=== PATIENT | female | born 1945 | race Caucasian/White ===

== ENCOUNTER 2016-03-09 05:44 | Day surgery (SDC) | payer OTHER ==
[~2016-03-09] VITALS: Ht 154.9 cm; Wt 87.5 kg
[2016-03-09] VITALS (18 sets, daily range): BP systolic 98–188; BP diastolic 56–88; PULSE 76–90; RESP 7–23; Ht 154.9 cm; Wt 87.5 kg
[~2016-03-09 05:44] MED LIST: ASPI81TA3 PO; GLIP10TA95 PO; LANTUS SC; LOSA100T47 PO; METF500T4 PO; METO-448 PO; PRAV40TA76 PO
[2016-03-09] MEDS ORDERED: CEFAZOLIN 2 GM/50 ML (PMX) 50 ML IVPB ONE (07:00)
[2016-03-09] MEDS ORDERED: GLUCOSE GEL 15 GRAM TUBE PO PRN ×2 (07:30)
[2016-03-09] MEDS ORDERED: GLUCAGON 1 MG INJ IM PRN (07:30)
[2016-03-09] MEDS ORDERED: INSULIN REGULAR, HUMAN 100 UNIT/1 ML 3ML VIAL SC ONE (07:30)
[2016-03-09] MEDS ORDERED: GLUCOSE GEL 15 GRAM TUBE BUCCAL PRN (07:30)
[2016-03-09] MEDS ORDERED: DEXTROSE 50% 50 ML SYRINGE IV PRN ×2 (07:30)
[2016-03-09] MEDS ORDERED: AMLO5TAB4 PO (07:31)
[2016-03-09] MEDS ORDERED: TRAM50TA2 PO (07:31)
[2016-03-09] MEDS ORDERED: NOVO3I SC (07:31)
[2016-03-09] MEDS ORDERED: SPIR100T31 PO (07:35)
[2016-03-09] MEDS ORDERED: GUAI120S26 PO (07:35)
[2016-03-09] MEDS ORDERED: CHOL100062 PO (07:35)
[2016-03-09] MEDS ORDERED: SPIR50TA PO (07:35)
[2016-03-09] MEDS ORDERED: FURO40TA4 PO (07:35)
[2016-03-09] MEDS ORDERED: ROCURONIUM 50 MG INJ ONE (07:59)
[2016-03-09] MEDS ORDERED: FENTAnyl 50 MCG/ML VIAL ONE ×2 (07:59→08:36)
[2016-03-09] MEDS ORDERED: SUCCINYLCHOLINE CHLORIDE 100 MG/5 ML SYG IV ONE (07:59)
[2016-03-09] MEDS ORDERED: ONDANSETRON 4 MG INJ ONE (07:59)
[2016-03-09] MEDS ORDERED: LIDOCAINE 1% (MDV) 20 ML INJ ONE (07:59)
[2016-03-09] MEDS ORDERED: ACETAMINOPHEN 1000MG/100ML IV 100 ML ONE (07:59)
[2016-03-09] MEDS ORDERED: PROPOFOL 20 ML ONE (07:59)
[2016-03-09] MEDS ORDERED: LIDOCAINE 1% (MPF) 30 ML INJ INJ ONE (08:00)
--- NOTE | 2016-03-09 08:03 | HPN ---
Date/Time of Note Date/Time of Note DATE: 03/09/16 TIME: 08:03 Interval H&P Admission Note Pt. seen H&P reviewed: No system changes RICARDO HUANG MD Mar 09, 2016 08:03
[2016-03-09] MEDS ORDERED: LIDOCAINE 1% (MPF) 30 ML INJ ONE (08:09)
[2016-03-09] MEDS ORDERED: HEPARIN 1000 UNITS/ML 10 ML INJ ONE (08:31)
[2016-03-09] MEDS ORDERED: METOCLOPRAMIDE 10 MG INJ ONE (08:32)
[2016-03-09] MEDS ORDERED: EPHEDrine SULFATE 50 MG/5 ML SYG ONE (08:37)
[2016-03-09] MEDS ORDERED: MEPERIDINE 25 MG INJ IV PRN (09:00)
[2016-03-09] MEDS ORDERED: LABETALOL HCL 20MG INJ IV PRN (09:00)
[2016-03-09] MEDS ORDERED: ONDANSETRON 4 MG INJ IV PRN (09:00)
[2016-03-09] MEDS ORDERED: morphine (1 MG/ML) 10ML SYRINGE IV PRN ×2 (09:00)
[2016-03-09] MEDS ORDERED: INSULIN ASPART [NOVOLOG] 3 ML PEN SC ONE (09:00)
[2016-03-09] MEDS ORDERED: EPHEDrine SULFATE 50 MG/5 ML SYG IV PRN (09:00)
[2016-03-09] MEDS ORDERED: hydrALAzine 20 MG INJ IV PRN (09:00)
[2016-03-09] MEDS ORDERED: FENTAnyl 50 MCG/ML VIAL IV PRN (09:00)
--- NOTE | 2016-03-09 11:02 | PDOCDIS ---
Discharge Instructions DIAGNOSIS Discharge Diagnosis: LLE VENOUS INSUFFICIENCY CONDITION Patient Condition: Good HOME CARE INSTRUCTIONS: Diet Instructions: Regular ACTIVITY: Activity Restrictions: Slowly Increase Activity Rest between Activity Avoid heavy lifting Do not Drive Do not operate Machinery Do not operate Power Tool Avoid Heavy Housework Keep Limb Elevated Activity Restrictions Comment: MAY SHOWER IN TWO DAYS FOLLOW UP/APPOINTMENTS Appointments NO BATHING OR SWIMMING FOLLOWUP WITH SAL AT [facility] IN 2 WEEKS MAY REMOVE DRESSING IN TWO DAYS ALLOW STERI STRIPS TO COME OFF ON THEIR OWN RICARDO HUANG MD Mar 09, 2016 11:02
--- NOTE | 2016-03-09 11:04 | OPR ---
Date/Time of Note Date/Time of Note DATE: 03/09/16 TIME: 11:03 Operative Report Free Text/Dictation DATE OF OPERATION: 03/09/2016 SURGEON: Yon Huang MD PREOPERATIVE DIAGNOSIS: Left lower extremity venous stasis ulcer and insufficiency with Left leg large varicose veins POSTOPERATIVE DIAGNOSIS: same PROCEDURE: 1. Left greater saphenous vein ligation and stripping 2. Stab phlebectomies x10 ANESTHESIA: MAC & local COMPLICATIONS: None. ESTIMATED BLOOD LOSS: Minimal. TRANSFUSIONS: None SPECIMEN: None. INDICATIONS: This is a 70-year-old female with a history of chronic venous insufficiency and with left leg varicose veins associated with pruritus, discomfort and pain The risks and benefits of the procedure were discussed with the patient and not limited to , MD, pneumonia, stroke, infection, thrombosis of vein and she elected to undergo surgical intervention. DESCRIPTION: The patient was placed in supine position on the operating room table. The arms were placed at 80 degrees. The normal bony prominences were padded. The anesthesia team had placed the appropriate lines and anesthesia was induced. Time-out performed and the appropriate site was marked and confirmed. The patient's left lower extremity was already marked in the holding area with the areas of varicosities. The extremity was prepped and draped in the usual standard sterile fashion. Preoperative antibiotics were administered prior to the skin incision. All varicosities were pre-marked in the surgery holding area. Primary incision was then made in the right inguinal crease overlying the saphenofemoral junction. This was identified as being 1 cm medial and 1 cm inferior to the femoral artery pulse. The subcutaneous tissue was divided with electrocautery. The greater saphenous vein was identified and traced proximally towards the saphenofemoral junction. Multiple venous tributaries were divided with a 3-0 silk ligatures. The greater saphenous vein was doubly ligated at its origin with a 2-0 silk ligature. The distal ligature was not tied however it was left in. A second incision was made a few centimeters below the knee. The subcutaneous tissue was divided and the saphenous vein was identified, then encircled proximally and distally with 3-0 silk ties. This time the distal ligature was secured and the proximal LigaSure left in position. Care was taken to avoid injury to the saphenous nerve. A small transverse venotomy was created with a # 11 blade. The stripping wire was inserted and passed proximally towards the groin without difficulty. The greater saphenous vein was then divided completely at the groin, allowing the vein stripping wire to exit. Prior to removal of the stripping wire was secured at both ends with a 2-0 silk ties that has been left in position. The greater saphenous vein was then stripped from distal to proximal with pressure being exerted as the vein was stripped. At this point hemostasis was controlled by elevation and pressure. Small incisions approximately 2-4 mm, were created over the preoperative marked areas using a #11 blade. A small stephanie hook and mosquito hemostat was used to avulse these veins. Veins were then pulled both proximally and distally. After hemostasis was obtained the wounds are irrigated copiously. The wound and the groin was closed in multiple layers with a 3-0 Vicryl Sutures Followed by Running 3-0 Subcuticular Stitch. Wounds Were the Stab Avulsions Occurred Were Closed with Steri-Strips. The Wound at the Below-Knee Incision Was Closed with a 3-0 Vicryl Suture. Steri-Strips Were Applied. All Wounds Were Sterilely Dressed with Gauze. Multiple 1cm stab incisions were made using #15 blade after injecting 1% lidocaine for local anesthesia. Short Bri clamp was used to dissect out the varicosities and stripping was performed in more than ten different areas that were marked preoperatively. Incisions were closed using 3-0 Vicryl sutures. Mastisol and steri strips were applied.Then Doubly Applied 6 Inch Jose C Bandage Was Placed on the Lower Leg Beginning at the Toes All the Way up to the Upper Thigh. The Patient Tolerated the Procedure Well and Was taken to the Postanesthesia Care Unit in Stable Condition. All instruments, catheters, sponges, and needles were corrected x2. YON HUANG MD Mar 09, 2016 11:04
--- NOTE | 2016-03-09 16:22 | RADRPT ---
Vent Rate: 76 bpm RR Interval: 0 msec [place] Interval: 138 msec QRS Duration: 84 msec QT Interval: 390 msec QTC Interval: 438 msec P-R-T [place]: 42 - 48 - 68 degrees Normal sinus rhythm Nonspecific T wave abnormality Abnormal ECG Electronically Signed By: Danny Willis [id number]
== END 2016-03-09 13:05 | disposition home or self-care (01) ==
LOC: SDS 05:44
PROVIDERS: ATTEND Student in an Organized Health Care Education/Training Program
DX: I83.92 Asymptomatic varicose veins of left lower extremity (principal); E11.9 Type 2 diabetes mellitus without complications; I12.9 Hypertensive chronic kidney disease with stage 1 through stage 4 chronic kidney disease, or unspecified chronic kidney disease; N18.9 Chronic kidney disease, unspecified; E66.9 Obesity, unspecified; Z68.36 Body mass index [BMI] 36.0-36.9, adult
CPT/HCPCS: 37765; 82962; 88304; 93005; J1644; J1815; J2405; J2765; J3010; J0131; J0330

== ENCOUNTER 2016-11-27 06:57 | Day surgery (SDC) | payer OTHER ==
[2016-11-27] VITALS (9 sets, daily range): BP systolic 115–148; BP diastolic 54–71; PULSE 67–72; RESP 18–21; Ht 317.5 cm; Wt 91.0 kg
[~2016-11-27] VITALS: Ht 317.5 cm; Wt 91.0 kg
[~2016-11-27 06:57] MED LIST changes: +AMLO5TAB4 PO; +CHOL100062 PO; +FURO40TA4 PO; -GLIP10TA95 PO; +GUAI120S26 PO; -METF500T4 PO; +NOVO3I SC; +SPIR100T31 PO; +SPIR50TA PO; +TRAM50TA2 PO
[2016-11-27] MEDS ORDERED: NOVO3I SC (07:34)
[2016-11-27] MEDS ORDERED: ROSU20TA PO (07:34)
[2016-11-27] MEDS ORDERED: LANT3I SC (07:35)
[2016-11-27] MEDS ORDERED: METF500T4 PO (07:36)
[2016-11-27] MEDS ORDERED: METO25TA4 PO (07:37)
--- NOTE | 2016-11-27 07:43 | RADRPT ---
PROCEDURE: XR Chest. CLINICAL INDICATION: Shortness of breath TECHNIQUE: Single frontal view of the chest was obtained COMPARISON: None FINDINGS: Atherosclerotic changes are seen in the aortic arch. The heart is mildly enlarged. The lungs are clear. There is no pleural effusion or pneumothorax. The bones and soft tissue show no acute change. IMPRESSION: The heart is mildly enlarged. Otherwise, no significant abnormalities are identified. RPTAT:AAJJ Physician Yesica Date Time Electronically viewed and signed by Mohamud Mclaughlin Physician on 11/27/2016 07:42 MACARIO/
[2016-11-27 07:48] LABS: BASOPHIL # 0.1 10^3/ul (0.0-0.1); BASOPHILS % 0.8 % (0.0-2.0); EOSINOPHILS # 0.4 10^3/ul (0.0-0.5); EOSINOPHILS % 5.2 % (0.0-7.0); HEMATOCRIT 42.9 % (37.0-47.0); LYMPHOCYTES # 2.9 10^3/ul (0.8-2.9); LYMPHOCYTES % 38.1 % (15.0-51.0); MEAN CORPUSCULAR HGB CONC 32.6 g/dl (32.0-37.0); MEAN CORPUSCULAR VOLUME 94.9 fl (82.0-101.0); MEAN PLATELET VOLUME 11.8 fl (7.4-10.4); MONOCYTE # 0.8 10^3/ul (0.3-0.9); MONOCYTES % 10.2 % (0.0-11.0); NEUTROPHIL # 3.5 10^3/ul (1.6-7.5); NEUTROPHILS % 45.6 % (39.0-77.0); PLATELET COUNT 156 10^3/UL (140-415); RED BLOOD COUNT 4.52 10^6/ul (4.20-5.40); RED CELL DISTRIBUTION WIDTH 12.5 % (11.5-14.5); WHITE BLOOD COUNT 7.7 10^3/ul (4.8-10.8)
[2016-11-27 08:05] LABS: INR 0.87; PROTIME 11.8 Sec (12.2-14.2); PT RATIO 0.9
[2016-11-27 08:06] LABS: PARTIAL THROMBOPLASTIN TIME 26.2 Sec (25.0-35.0)
[2016-11-27 08:10] LABS: CALCIUM 9.4 mg/dl (8.4-10.2); POTASSIUM 4.8 mmol/L (3.5-5.1)
[2016-11-27 08:13] LABS: CREATININE 1.31 mg/dl (0.44-1.00)
[2016-11-27 08:24] LABS: ADD UMIC YES; UR ASCORBIC ACID NEGATIVE (NEGATIVE); UR BILIRUBIN (Dip) NEGATIVE (NEGATIVE); UR BLOOD (Dip) NEGATIVE (NEGATIVE); UR CLARITY CLEAR (CLEAR); UR COLOR COLORLESS (YELLOW); UR GLUCOSE (Dip) NEGATIVE (NEGATIVE); UR KETONES (Dip) NEGATIVE (NEGATIVE); UR LEUKOCYTE ESTERASE (Dip) 1+ Leu/ul (NEGATIVE); UR NITRITE (Dip) NEGATIVE (NEGATIVE); UR RBC 0 /HPF (0-5); UR SPECIFIC GRAVITY (Dip) 1.005 (1.003-1.030); UR TOTAL PROTEIN (Dip) NEGATIVE (NEGATIVE); UR UROBILINOGEN (Dip) NEGATIVE (NEGATIVE)
--- NOTE | 2016-11-27 12:01 | CONS ---
Date/Time of Note Date/Time of Note DATE: 11/27/16 TIME: 11:58 Consultation Date/Type/Reason Admit Date/Time Hx of Present Illness VASCULAR SURGERY H&P Dear Doctors: Ms. Tsai is a 70-year-old female, known to our vascular surgery service, who presented with bilateral lower extremity varicose veins and venous insufficiency. The patient had noticed that this was getting worse over the past 6 to 7 months. Her left had been worse than her right, especially because of her profession with her work and prolonged standing. 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 Further, she underwent a left lower extremity greater saphenous vein ligation and stripping stab phlebectomy for her varicose veins. The patient mentions that she has a lot of left lower extremity discomfort that has lessened and she is trying to be as compliant as possible with her compression stockings. She would like to pursue other evaluations for possible proximal reflux in her venous system. She denies shortness of breath, chest pain, nausea, vomiting, fever or chills. She denies left lower extremity discomfort, pain or tingling. She does mention that her right lower extremity has similar complaints as the left lower extremity for now and new US showed possible left iliac vein reflux PHYSICAL EXAMINATION: GENERAL: Alert and oriented x3. LUNGS: Clear to auscultation bilaterally. HEART: S1, S2 present. ABDOMEN: Soft, nontender, nondistended. Bowel sounds positive. Truncal obesity. EXTREMITIES: Right lower extremity palpable femoral pulse, palpable pedal pulse. Motor and sensory intact. Cap refill is 2 to 3 seconds. A large thigh area. She has varicose veins from her feet all the way up to her lower thigh area, with varicose veins, telangiectasias, and spider veins. Edema 1+. Left lower extremity has a palpable femoral pulse, palpable pedal pulse. Motor and sensory intact. Cap refill 2 to 3 seconds. She has spider veins and telangiectasias from her feet all the way up to her knee. She does have varicose veins from her knee area on the lateral aspect of the leg that run to her upper thigh. ASSESSMENT AND PLAN: 1. Bilateral lower extremity venous insufficiency and varicose veins. The patient's bilateral greater saphenous vein reflux has been associated with her discomfort, itchiness and heaviness of her feet with prolonged standing. The patient has undergone left lower extremity greater saphenous vein stripping, ligation and stab phlebectomy and she has been coming along well. We encouraged her to continue with being compliant in wearing her compression stockings. We will address her remaining varicose veins that have not resolved and plan to perform stab phlebectomies for those veins. and will schedule her for venogram 2. For her right lower extremity venous insufficiency and varicose veins we have encouraged her to continue with better compliance with the compression stockings and will be re-evaluate her at that time if she still is having any discomfort, and if so will schedule her for greater saphenous vein ligation, stab phlebectomy and stripping at that time. 3. The patient has agreed to our plan. We discussed the findings and our management with a certified auto former machine operator and they understand. 4. Optimize vascular status (BP meds, diet, nutrition, exercise, sugar control , antiplatelets, weight loss). 5. The patient has some lower extremity discomfort of her feet, as she has peripheral neuropathy, and she will require diabetic fitted shoes and inserts. Will make the appropriate recommendations to have this ordered for her. Thank you for allowing us to partake in the care of your patient. Please call with any questions. Social History Smoking Status: Never smoker Exam/Review of Systems Vital Signs Vitals Vital Signs Date Time Temp Pulse Resp B/P Pulse Ox O2 Delivery O2 Flow Rate FiO2 11/27/16 07:53 98.4 72 18 148/65 99 Room Air Results Result Diagram: 11/27/1620 11/27/1620 Results 24 hrs Laboratory Tests Test 11/27/16 07:20 11/27/16 07:33 White Blood Count 7.7 Red Blood Count 4.52 Hemoglobin 14.0 Hematocrit 42.9 Mean Corpuscular Volume 94.9 Mean Corpuscular Hemoglobin 31.0 Mean Corpuscular Hemoglobin Concent 32.6 Red Cell Distribution Width 12.5 Platelet Count 156 Mean Platelet Volume 11.8 H Neutrophils % 45.6 Lymphocytes % 38.1 Monocytes % 10.2 Eosinophils % 5.2 Basophils % 0.8 Nucleated Red Blood Cells % 0.0 Neutrophils # 3.5 Lymphocytes # 2.9 Monocytes # 0.8 Eosinophils # 0.4 Basophils # 0.1 Nucleated Red Blood Cells # 0.0 Prothrombin Time 11.8 L Prothrombin Time Ratio 0.9 INR International Normalized Ratio 0.87 Activated Partial Thromboplast Time 26.2 Urine Color COLORLESS Urine Clarity CLEAR Urine pH 6.0 Urine Specific [place] 1.005 Urine Ketones NEGATIVE Urine Nitrite NEGATIVE Urine Bilirubin NEGATIVE Urine Urobilinogen NEGATIVE Urine Leukocyte Esterase 1+ H Urine Microscopic RBC 0 Urine Microscopic WBC 4 Urine Hemoglobin NEGATIVE Urine Glucose NEGATIVE Urine Total Protein NEGATIVE Sodium Level 143 Potassium Level 4.8 Chloride Level 106 Carbon Dioxide Level 30 Anion Gap 12 Blood Urea Nitrogen 44 H Creatinine 1.31 H Glucose Level 124 Calcium Level 9.4 Bedside Glucose 114 RICARDO HUANG MD Nov 27, 2016 12:01
[2016-11-27] MEDS ORDERED: LIDOCAINE 1% (MDV) 20 ML INJ ONE (12:09)
[2016-11-27] MEDS ORDERED: HEPARIN 1000 UNITS/ML 10 ML INJ ONE (12:09)
[2016-11-27] MEDS ORDERED: FENTAnyl 50 MCG/ML VIAL ONE ×2 (12:30→13:33)
[2016-11-27] MEDS ORDERED: MIDAZOLAM 1 MG/ML 2 ML INJ ONE (12:30)
--- NOTE | 2016-11-27 14:07 | HPN ---
Date/Time of Note Date/Time of Note DATE: 11/27/16 TIME: 14:07 Interval H&P Admission Note Pt. seen H&P reviewed: No system changes RICARDO HUANG MD Nov 27, 2016 14:07
--- NOTE | 2016-11-27 14:12 | PDOCDIS ---
Discharge Instructions DIAGNOSIS Discharge Diagnosis BILATERAL LE VENOUS INSUFFICIENCY CONDITION Patient Condition: Good HOME CARE INSTRUCTIONS: Special Diet: RESUME PREOP ACTIVITY: Activity Restrictions: Slowly Increase Activity Avoid heavy lifting Do not Drive Do not operate Power Tool Avoid Heavy Housework Keep Limb Elevated Activity Restrictions Comment: MAY SHOWER IN TWO DAYS FOLLOW UP/APPOINTMENTS Follow-up Plan FOLLOWUP IN TWO WEEKS RICARDO HUANG MD Nov 27, 2016 14:12
[2016-11-27] MEDS ORDERED: SOD CHLORIDE 0.45% 1,000 ML IV SCH (14:17)
[2016-11-27] MEDS ORDERED: ONDANSETRON 4 MG INJ IV PRN (14:30)
--- NOTE | 2016-11-27 14:32 | SIPON ---
Date/Time of Note Date/Time of Note DATE: 11/27/16 TIME: 14:31 Operative Report Preoperative Diagnosis bilateral LE VENOUS INSUFFICIENCY Postoperative Diagnosis SAME Operation/Procedure Performed BILATERAL ILIAC VEIN STENTING AND ANGIOPLASTY AND IVUS Surgeon see signature line health information assistant NONE Anesthesia: moderate sedation Estimated blood loss: minimal Transfusion Required none Specimen STENTS Grafts/Implants none Complications none RICARDO HUANG MD Nov 27, 2016 14:32
[2016-11-27] MEDS ORDERED: APIXABAN 5 MG TABLET PO ONE (15:30)
[2016-11-27] MEDS ORDERED: ACCU-CHEK XX SCH (17:30)
--- NOTE | 2016-11-30 15:57 | RADRPT ---
Vent Rate: 73 bpm RR Interval: 0 msec [place] Interval: 138 msec QRS Duration: 86 msec QT Interval: 390 msec QTC Interval: 429 msec P-R-T [place]: 50 - 45 - 61 degrees Normal sinus rhythm Nonspecific T wave abnormality Abnormal ECG Electronically Signed By: Josr Milton [id number]
--- NOTE | 2016-12-01 05:40 | OPR ---
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 HEPARIN: 5000UNITS CONTRAST: 43ml ACCESS: 11Fr Sheath left popliteal vein CLOSURE: Manual compression INDICATIONS: This is a 31-year-old female with history of left lower extremity DVT that presented with recurrent acute left lower extremity DVT and GSV thrombophlebitis, associated with pain, swelling and discomfort . Patient has been informed of the alternatives, risks, and benefits of venogram, balloon venoplasty, and stenting. Risks including but not limited to bleeding, thrombosis, embolization, myocardial infarction, , device malfunction, infection, and nephrotoxicity and patient has agreed to proceed. This is the first diagnostic venogram in this clinical setting PROCEDURE: 1. Ultrasound guided access of left popliteal vein 2. Left lower extremity venogram 3. Inferior vena cava venogram 4. Intravascular ultrasound of the left popliteal vein, deep femoral vein, common femoral vein, external iliac vein , common iliac vein, inferior vena cava 5. Left Common iliac vein & external iliac vein stenting with [id number] wall stent 6. Left Common iliac vein & external iliac vein venoplasty with [id number] 7. Completion intravascular ultrasound 8. Completion venogram of the left lower extremity FINDINGS: Left popliteal vein thrombus Left femoral vein patent Left common femoral vein patent Left proximal external iliac vein compression Left proximal common iliac vein compression Inferior vena cava patent Left proximal common iliac vein measuring 96.8 mm Left distal common iliac vein injuring to 220.2 mm There is 72.4% difference Left proximal external iliac vein measuring 122.5 mm Left distal external iliac vein measuring 86.6 mm Postintervention: Left common iliac vein measuring 183.8 mm Left external iliac vein measuring 155.2 mm DESCRIPTION OF THE PROCEDURE: The patient was brought to the angio suite and positioned in the prone position on the fluoroscopic table. Sedation was administered without complication. Bilateral popliteal region were shaved, prepped and draped in the standard sterile fashion. A time-out and the appropriate site was marked and confirmed. Local anesthesia was infiltrated in the region of the common popliteal vein. The popliteal vein was cannulated with a micro access needle under ultrasound guidance and a guide wire advanced into the femoral vein under fluoroscopic guidance. The needle was removed and a microcatheter was placed. Rosenberg wire was then passed into the iliac vein under fluoroscopic guidance followed by a short 8Fr sheath over the wire. Sheath was appropriately flushed with heparinized saline solution. Left lower extremity and inferior vena cava venogram was conducted. Intravascular ultrasound was conducted and findings were noted. It was identified that the patient has venous webbing throughout the femoral vein, wall thickening upon the intravascular ultrasound, and common, external iliac vein compression. Subsequently, 11 Egyptian sheath was placed and a wall stents 22mm x 70mm was deployed in the left common iliac vein extending to the external iliac vein. Completion venogram and intravascular ultrasound was conducted and findings were as noted. There was good outflow across the iliac system without any areas of compression. At this point the sheath was removed and pressure was held and the patient was taken to the recovery unit in fair condition. PLAN: We will plan to have the patient continue anticoagulation for 3-6 months. The patient will return for repeat of venous duplex in 1 month. YON HUANG MD Dec 01, 2016 05:40
== END 2016-11-27 18:45 | disposition home or self-care (01) ==
LOC: SDS 06:57
PROVIDERS: ATTEND Student in an Organized Health Care Education/Training Program
DX: I87.1 Compression of vein (principal); I82.432 Acute embolism and thrombosis of left popliteal vein; I80.02 Phlebitis and thrombophlebitis of superficial vessels of left lower extremity; I87.2 Venous insufficiency (chronic) (peripheral); I83.893 Varicose veins of bilateral lower extremities with other complications; I12.9 Hypertensive chronic kidney disease with stage 1 through stage 4 chronic kidney disease, or unspecified chronic kidney disease; E11.22 Type 2 diabetes mellitus with diabetic chronic kidney disease; N18.9 Chronic kidney disease, unspecified; E78.00 Pure hypercholesterolemia, unspecified
CPT/HCPCS: 37221; 71010; 75825; 80048; 81001; 82962; 85025; 85610; 85730; 93005; C1769; C1875; C1887; C1894; J1644; J2250; J3010